=== PATIENT | female | born 1955 | race Caucasian/White ===

== ENCOUNTER → 2016-11-09 | Outpatient (CLI) | payer BC | LOC: MC.RAD 11:20 | DX: Z12.31 Encounter for screening mammogram for malignant neoplasm of breast (principal) ==

== ENCOUNTER → 2018-04-04 | Outpatient (CLI) | payer BC | LOC: MC.RAD 14:36 | DX: Z12.31 Encounter for screening mammogram for malignant neoplasm of breast (principal) ==

== ENCOUNTER → 2019-09-19 | Outpatient (CLI) | payer BC | LOC: MC.RAD 14:43 | DX: Z12.31 Encounter for screening mammogram for malignant neoplasm of breast (principal) ==

== ENCOUNTER → 2021-01-17 | Outpatient (CLI) | payer MEDICARE | LOC: MC.RAD 14:09 | DX: Z12.31 Encounter for screening mammogram for malignant neoplasm of breast (principal) ==

== ENCOUNTER → 2022-03-30 | Outpatient (CLI) | payer MEDICARE | LOC: MC.RAD 08:11 | DX: Z12.31 Encounter for screening mammogram for malignant neoplasm of breast (principal) ==